=== PATIENT | male | born 1960 | race Caucasian/White ===

== ENCOUNTER → 2016-07-13 | Outpatient (CLI) | payer MEDICAID ==
--- NOTE | 2016-07-13 16:39 | CT ---
Unenhanced CT Scan of the Chest CLINICAL HISTORY: 55-year-old male who presents for lung cancer screening prior to a kidney transplan t. The patient smoked for 25 years, although quit 4 years ago. ICD 10 Diagnostic Code: Z76.82. TECHNIQUE: A multidetector unenhanced helical CT scan was obtained from the base of the neck inferior ly to the upper abdomen, with images reformatted at 2.50 and 1.25 mm increments, and reviewed at a [facility] of window and level settings. Parasagittal and paracoronal reconstructed images are reviewed on the workstation. The DFOV is 40.0 cm. A dose reduction protocol was used. COMPARISON STUDY: None. FINDINGS: There are some surgical clips anterior and inferior to the medial portion of the right clav icular diaphysis. There is some minimal linear scarring in the medial right apex, and moderate left a pical pleuroparenchymal fibrosis. What is the patient's PPD status? Given the asymmetry and appearanc e of the apices, and the lack of any preceding studies, a six-month CT reevaluation may be of benefit to assure stability. The remainder of the lungs is unremarkable. There is a small benign subpleural lipoma at the left hemidiaphragm. The thoracic aortic contour, cardiac chambers, and pericardium are essentially unremarkable (there is some very mild atherosclerotic calcification associated with the a ortic arch). There is no pleural effusion, nor is there any axillary or intrathoracic adenopathy. The visualized portions of the thyroid gland are unremarkable. Multilevel degenerative features are seen throughout thoracic spine. There is no osseous or lytic or blastic lesion. A mild thoracic dextrocur vature is seen. The kidneys are seen in a limited fashion, and there is some lobation present. There is mild constipation associated with the distal transverse colon and the splenic flexure. A sma ll calcified granuloma is seen in association with a benign precaval lymph node (on series 2 image 11 4). IMPRESSION: Minimal right apical and moderate left apical pleuroparenchymal fibrotic changes. These f eatures likely reflect old granulomatous disease; however, correlation with PPD status is suggested. There is also a tiny calcified benign-appearing precaval lymph node. If there are no prior studies fo r comparison, consider six-month reevaluation to assure stability of the lung apices.
== END ==
LOC: FIMAGING 15:38
PROVIDERS: ATTEND Internal Medicine
DX: J98.4 Other disorders of lung (principal); Z12.2 Encounter for screening for malignant neoplasm of respiratory organs; Z76.82 Awaiting organ transplant status; Z87.891 Personal history of nicotine dependence

== ENCOUNTER → 2016-08-31 | Outpatient (CLI) | payer MEDICAID | LOC: FIMAGING 12:24 | PROVIDERS: ATTEND Internal Medicine | DX: E21.3 Hyperparathyroidism, unspecified (principal) ==

== ENCOUNTER → 2017-05-03 | Outpatient (CLI) | payer MEDICAID | LOC: FIMAGING 14:52 | PROVIDERS: ATTEND Internal Medicine | DX: Z01.818 Encounter for other preprocedural examination (principal); J47.9 Bronchiectasis, uncomplicated; R91.1 Solitary pulmonary nodule ==

== ENCOUNTER → 2017-05-03 | Outpatient (CLI) | payer MEDICAID ==
--- NOTE | 2017-05-07 13:56 | CPEEG ---
[f rep st] ELECTROENCEPHALOGRAM DATE OF STUDY: DATE OF INTERPRETATION: 05/07/2017. DATE OF STUDY: 05/03/2017. INTERPRETATION: This 4-hour video EEG recording contains a mild degree of focal slowing over the right frontal head regions. These findings are consistent with a mild focal disturbance of cerebral function in these regions. There were no potentially epileptogenic abnormalities present in the awake or sleep recordings. During the video EEG monitoring session, the patient did not have any clinical events. REPORT: This 4-hour video electroencephalogram contains 10 Hz alpha to the posterior head regions. There was no abnormal activation at rest, during photic stimulation or hyperventilation. There was a mild degree of focal slowing over the right frontal head region composed of intermittent, low amplitude polymorphic theta frequency activity. The patient became drowsy and fell asleep during the study. There was no abnormal activation during drowsiness, sleep, or during times of arousal. The patient did not have any clinical events during the video EEG monitoring session. /[id number]/MODL MTDD
== END ==
LOC: FCPNEURO 08:21
PROVIDERS: ATTEND Psychiatry & Neurology Neurology
DX: G40.009 Localization-related (focal) (partial) idiopathic epilepsy and epileptic syndromes with seizures of localized onset, not intractable, without status epilepticus (principal)